=== PATIENT | male | born 1975 | race Caucasian/White ===

== ENCOUNTER 2025-01-21 10:40 | Outpatient (REF) | payer MEDICAID, SELFPAY ==
[2025-01-21 14:32] LABS: HCT 42.8 % (40.0-50.0); HGB 13.8 g/dL (13.5-17.5); MCH 30.4 pg (27.0-33.0); MCHC 32.2 % (32.0-36.0); MCV 94 fL (80-95); MPV 10.6 fL (8.0-11.0); Platelet Count 307 10^3/uL (130-400); RBC 4.54 10^6/uL (4.36-5.78); RDW 12.5 % (11.8-14.1); RDW-SD 43.3 fL; WBC 6.97 10^3/uL (4.4-10.8)
[2025-01-21 14:46] LABS: ALT 36 U/L (16-63); AST 26 U/L (15-37); Albumin 3.9 g/dL (3.4-5.0); Alkaline Phosphatase 160 U/L (46-116); Anion Gap 7.9 mmol/L (3-11); BUN 13 mg/dL (7-18); Bilirubin, Total 0.7 mg/dL (0.2-1.0); CO2 27.1 mmol/L (21.0-32.0); Calcium 9.2 mg/dL (8.5-10.1); Calculated LDL 68 mg/dL (<100); Chloride 104 mmol/L (98-107); Cholesterol 136 mg/dL (<200); Estimated GFR 106.01 (mL/min/1.73m2); Glucose 118 mg/dL (74-106); HDL Cholesterol 35 mg/dL (>or=40); Magnesium 1.9 mg/dL (1.8-2.4); Potassium 4.3 mmol/L (3.5-5.1); Sodium 139 mmol/L (136-145); TSH 3.69 uIU/mL (0.36-3.74); Total Protein 7.8 g/dL (6.4-8.2); Triglyceride 167 mg/dL (<150)
[2025-01-21 22:28] LABS: T3, Total 165 ng/dL (97-169)
== END 2025-01-21 10:41 | disposition home or self-care (01) ==
LOC: NCHCN 10:40
PROVIDERS: PCP Physician Assistant; Visit Provider Physician Assistant
DX: E03.9 Hypothyroidism, unspecified (principal); R74.8 Abnormal levels of other serum enzymes; M54.50 Low back pain, unspecified; E66.9 Obesity, unspecified; R20.2 Paresthesia of skin
CPT/HCPCS: 80053; 80061; 85027; 83735; 84439; 84443; 84480